=== PATIENT | male | born 1960 | race Hispanic/Latino ===

== ENCOUNTER 2021-03-05 14:28 | Emergency (ER) | payer OTHER ==
[2021-03-05] MEDS ORDERED: HYDROcodone/Acetaminophen 5/325 mg Tablet ONE (15:06)
[2021-03-05] MEDS ORDERED: Ondansetron ODT 4 MG TAB ONE (15:07)
[2021-03-05] MEDS ORDERED: Clindamycin 150 MG CAP ONE (15:07)
== END 2021-03-05 15:10 | disposition home or self-care (01) ==
LOC: BURERS 14:28
DX: S31.30XA Unspecified open wound of scrotum and testes, initial encounter (principal); N49.2 Inflammatory disorders of scrotum; E11.9 Type 2 diabetes mellitus without complications; I10 Essential (primary) hypertension
CPT/HCPCS: 87070; 87077; 87186; 87205; 99283; Q0162